=== PATIENT | male | born 1950 | race Caucasian/White ===

== ENCOUNTER 2021-12-03 14:29 | Observation (INO) | payer MEDICARE ==
[2021-12-03] MEDS ORDERED: Aspirin 325 MG TAB ONE (15:34)
[2021-12-03 15:57] LABS: #Basophils 0.1 10x3/uL (0.0-0.2); #Eosinphils 0.4 10x3/uL (0.0-0.5); #Monocytes 0.8 10x3/uL (0.0-1.1); #Neutrophils 3.8 10x3/uL (1.5-8.4); %Eosinophils 5.6 % (0.0-6.0); %Lymphocytes 28.3 % (18.0-47.0); %Monocytes 11.3 % (0.0-10.0); %Neutrophils 53.5 % (40.0-75.0); Hemoglobin 14.1 g/dL (13.5-17.5); Mean Corpuscular HGB CONC 34.1 g/dL (32.0-36.0); Mean Corpuscular Hemoglobin 32.1 pg (27.0-33.0); Mean Corpuscular Volume 94.1 fl (81.2-95.1); Mean Platelet Volume 10.6 fl (7.4-10.4); Platelet Count 244 10x3/uL (150-450); RBC Distribution Width 12.6 % (11.5-14.5); Red Blood Cell (RBC) Count 4.39 10x6/uL (4.32-5.72); White Blood Cell (WBC) Count 7.1 10x3/uL (3.5-10.5)
[2021-12-03 16:11] LABS: ALT (SGPT) 23 U/L (8-55); AST (SGOT) 26 U/L (5-34); Alkaline Phosphatase 73 U/L (40-110); Anion Gap 15 mmol/L (10-20); BUN (Urea Nitrogen) 19 mg/dL (8.4-25.7); Bilirubin, Total 0.5 mg/dL (0.2-1.2); Calc. Creatinine Clearance 0 mL/min (70-130); Calcium 8.9 mg/dL (7.8-10.44); Carbon Dioxide 24 mmol/L (23-31); Chloride 106 mmol/L (98-107); Globulin 2.5 g/dL (2.4-3.5); Glucose 104 mg/dL (83-110); Potassium 3.7 mmol/L (3.5-5.1); Protein, Total 6.5 g/dL (5.8-8.1); Sodium 141 mmol/L (136-145)
[2021-12-03] MEDS ORDERED: Acetaminophen 325 MG TAB PO PRN (17:04)
[2021-12-03] MEDS ORDERED: Ondansetron PF 4 MG/2 ML Vial IVP PRN (17:04)
[2021-12-03] MEDS ORDERED: Ondansetron ODT 4 MG TAB PO PRN (17:04)
[2021-12-03] MEDS ORDERED: HYDROcodone/Acetaminophen 5/325 mg Tablet PO PRN (17:04)
[2021-12-03] MEDS ORDERED: Senokot S 8.6-50 MG TAB PO PRN (17:04)
[2021-12-03] MEDS ORDERED: Nitroglycerin 0.4 MG TAB (25 Tab Bottle) SL PRN (17:06)
[2021-12-03 18:04] LABS: Troponin I Less than 0.010 ng/mL (< 0.028)
[2021-12-03 19:26] VITALS: BMI 28.6
[2021-12-03 20:57] LABS: Troponin I Less than 0.010 ng/mL (< 0.028)
[2021-12-03] MEDS ORDERED: Famotidine 20 MG TAB PO SCH (21:00)
[2021-12-03] MEDS: Ezetimibe 10 MG TAB PO SCH (21:50)
[2021-12-03] MEDS: Aspirin Chewable 81 MG TAB PO SCH (21:50)
[2021-12-03] MEDS: Fish Oil 1,000 MG CAP PO SCH (21:50)
[2021-12-03] MEDS: Atorvastatin Calcium 40 MG TAB PO SCH (21:50)
[2021-12-04] MEDS: Famotidine/PF 20 mg/2ml Vial SLOW IVP SCH ×3 (00:27→22:18)
[2021-12-04 04:54] LABS: #Basophils 0.1 10x3/uL (0.0-0.2); #Eosinphils 0.5 10x3/uL (0.0-0.5); #Monocytes 0.8 10x3/uL (0.0-1.1); %Basophils 1.2 % (0.0-2.0); %Eosinophils 7.7 % (0.0-6.0); %Lymphocytes 33.6 % (18.0-47.0); %Monocytes 11.6 % (0.0-10.0); %Neutrophils 45.6 % (40.0-75.0); Hemoglobin 13.8 g/dL (13.5-17.5); Mean Corpuscular HGB CONC 34.4 g/dL (32.0-36.0); Mean Corpuscular Hemoglobin 31.7 pg (27.0-33.0); Mean Corpuscular Volume 92.2 fl (81.2-95.1); Mean Platelet Volume 9.9 fl (7.4-10.4); Platelet Count 229 10x3/uL (150-450); RBC Distribution Width 12.6 % (11.5-14.5); Red Blood Cell (RBC) Count 4.35 10x6/uL (4.32-5.72); White Blood Cell (WBC) Count 6.7 10x3/uL (3.5-10.5)
[2021-12-04 05:08] LABS: Anion Gap 12 mmol/L (10-20); BUN (Urea Nitrogen) 17 mg/dL (8.4-25.7); Calc. Creatinine Clearance 74 mL/min (70-130); Calcium 8.6 mg/dL (7.8-10.44); Carbon Dioxide 25 mmol/L (23-31); Cardiac Risk 3.8 (Less than 4.5); Chloride 108 mmol/L (98-107); Cholesterol 83 mg/dl (< 200 Desired); Glucose 115 mg/dL (83-110); HDL Cholesterol 22 mg/dL (>60 Neg Risk); LDL Cholesterol, Calculated 42 mg/dL; Potassium 3.4 mmol/L (3.5-5.1); Sodium 142 mmol/L (136-145); Triglycerides 97 mg/dL (Less than 150)
[2021-12-04 08:58] LABS: SARS-CoV-2 NAA Rapid Test Not Detected (NotDetected)
[2021-12-04] MEDS ORDERED: Losartan Potassium 50 MG TAB PO SCH (09:00)
[2021-12-04] MEDS ORDERED: Aspirin Chewable 81 MG TAB PO SCH (09:00)
[2021-12-04] MEDS ORDERED: Clopidogrel Bisulfate 75 MG TAB PO SCH (09:00)
[2021-12-04] MEDS ORDERED: Enoxaparin Sodium 40 MG/0.4 ML SYRINGE SC SCH ×2 (09:00)
[2021-12-04] MEDS: Fish Oil 1,000 MG CAP PO SCH ×2 (10:03→22:18)
[2021-12-04] MEDS ORDERED: Potassium Chloride 20 MEQ TAB PO SCH (11:00)
[2021-12-04] MEDS: Aspirin Chewable 81 MG TAB PO SCH (22:17)
[2021-12-04] MEDS: Ezetimibe 10 MG TAB PO SCH (22:17)
[2021-12-04] MEDS: Atorvastatin Calcium 40 MG TAB PO SCH (22:18)
[2021-12-05 11:04] VITALS: BP 133/100; TEMP 97.2
== END 2021-12-05 11:06 | disposition home or self-care (01) ==
LOC: CSHERS 14:29 → CSHTELE 17:58
PROVIDERS: ADMIT Hospitalist; ATTEND Family Medicine
DX: R07.9 Chest pain, unspecified (principal); K21.9 Gastro-esophageal reflux disease without esophagitis; E78.5 Hyperlipidemia, unspecified; I10 Essential (primary) hypertension; E66.9 Obesity, unspecified; I25.810 Atherosclerosis of coronary artery bypass graft(s) without angina pectoris; F17.200 Nicotine dependence, unspecified, uncomplicated; Z86.718 Personal history of other venous thrombosis and embolism; Z79.01 Long term (current) use of anticoagulants
CPT/HCPCS: 71045; 80048; 80053; 80061; 83880; 84443; 84484 ×2; 85025 ×2; 93005 ×2; 96372; 96374; 96376; 99285; G0378 ×4; U0002; 36415; 93010; J1650; S0028

== ENCOUNTER 2022-06-21 15:14 | Observation (INO) | payer MEDICARE ==
[~2022-06-21 15:14] MED LIST: Iopamidol 300 61% 100 ML VIAL FS ONE
[2022-06-21 15:46] LABS: #Basophils 0.1 10x3/uL (0.0-0.2); #Eosinphils 0.2 10x3/uL (0.0-0.5); #Monocytes 0.9 10x3/uL (0.0-1.1); #Neutrophils 6.4 10x3/uL (1.5-8.4); %Basophils 0.7 % (0.0-2.0); %Eosinophils 2.2 % (0.0-6.0); %Lymphocytes 17.4 % (18.0-47.0); %Monocytes 9.9 % (0.0-10.0); %Neutrophils 69.5 % (40.0-75.0); Hemoglobin 15.1 g/dL (13.5-17.5); Mean Corpuscular HGB CONC 33.9 g/dL (32.0-36.0); Mean Corpuscular Hemoglobin 32.1 pg (27.0-33.0); Mean Corpuscular Volume 94.5 fl (81.2-95.1); Mean Platelet Volume 9.8 fl (7.4-10.4); Platelet Count 265 10x3/uL (150-450); Red Blood Cell (RBC) Count 4.71 10x6/uL (4.32-5.72); White Blood Cell (WBC) Count 9.2 10x3/uL (3.5-10.5)
[2022-06-21 16:38] LABS: ALT (SGPT) 105 U/L (8-55); AST (SGOT) 157 U/L (5-34); Albumin 4.5 g/dL (3.4-4.8); Alkaline Phosphatase 110 U/L (40-110); Anion Gap 16 mmol/L (10-20); BUN (Urea Nitrogen) 16 mg/dL (8.4-25.7); Bilirubin, Total 0.6 mg/dL (0.2-1.2); Calc. Creatinine Clearance 0 mL/min (70-130); Calcium 9.3 mg/dL (7.8-10.44); Carbon Dioxide 22 mmol/L (23-31); Chloride 103 mmol/L (98-107); Estimated GFR 79; Globulin 2.6 g/dL (2.4-3.5); Glucose 114 mg/dL (83-110); Lipase 44 U/L (8-78); Protein, Total 7.1 g/dL (5.8-8.1); Sodium 137 mmol/L (136-145)
[2022-06-21] MEDS ORDERED: Aspirin Chewable 81 MG TAB ONE (17:35)
[2022-06-21] MEDS ORDERED: Dicyclomine 20 MG TAB ONE (17:36)
[2022-06-21] MEDS ORDERED: Guaifenesin DM 100-10/5 ML UDCUP PO PRN (19:18)
[2022-06-21] MEDS ORDERED: Acetaminophen 325 MG TAB PO PRN (19:18)
[2022-06-21] MEDS ORDERED: Calcium Carbonate 500 MG ChewTAB PO PRN (19:18)
[2022-06-21] MEDS ORDERED: Senokot S 8.6-50 MG TAB PO PRN (19:18)
[2022-06-21] MEDS ORDERED: Ondansetron PF 4 MG/2 ML Vial IVP PRN (19:18)
[2022-06-21] MEDS ORDERED: Zolpidem Tartrate 5 MG TAB PO PRN (19:18)
[2022-06-21] MEDS ORDERED: Lidocaine 2% Viscous Solution 10 ML, Aluminum & Magnesium Hydroxide 30 ML SSW SCH (20:30)
[2022-06-21 20:59] VITALS: BMI 29.5
[2022-06-21] MEDS ORDERED: Aspirin Chewable 81 MG TAB PO SCH (21:00)
[2022-06-21] MEDS ORDERED: Hydrochlorothiazide 25 MG TAB PO SCH (21:00)
[2022-06-21 23:35] LABS: SARS-CoV-2 NAA Rapid Test Not Detected (NotDetected)
[2022-06-21 23:45] LABS: Bilirubin Neg (Negative); Blood, Urine 25 (Negative); CAUTI Indications for Culture Pelvic or flank pain; Clarity Clear (Clear); Glucose, Urine (Dipstick) Normal (Negative); Ketone, Urine Negative (Negative); Leukocyte Negative (Negative); Nitrite Negative (Negative); Protein, Urine (Dipstick) Negative (Neg-Trace); Specific Gravity, Urine 1.005 (1.005-1.030); Urobilinogen Normal mg/dL (Less than 2); pH, Urine 6.5 (5.0-9.0)
[2022-06-21 23:57] LABS: Bacteria/HPF None Seen HPF (None Seen); RBC/HPF 0-3 HPF (0-3); Squamous Epithelial 0-3 HPF (0-3); WBC/HPF None Seen HPF (0-3)
[2022-06-21 23:58] LABS: Urine Culture Reflex No No
[2022-06-22 04:52] LABS: #Basophils 0.1 10x3/uL (0.0-0.2); #Eosinphils 0.5 10x3/uL (0.0-0.5); #Monocytes 0.8 10x3/uL (0.0-1.1); #Neutrophils 4.2 10x3/uL (1.5-8.4); %Basophils 0.7 % (0.0-2.0); %Eosinophils 7.2 % (0.0-6.0); %Lymphocytes 23.8 % (18.0-47.0); %Monocytes 10.9 % (0.0-10.0); %Neutrophils 57.1 % (40.0-75.0); Hemoglobin 14.2 g/dL (13.5-17.5); Mean Corpuscular HGB CONC 34.8 g/dL (32.0-36.0); Mean Corpuscular Hemoglobin 32.6 pg (27.0-33.0); Mean Corpuscular Volume 93.6 fl (81.2-95.1); Mean Platelet Volume 9.9 fl (7.4-10.4); Platelet Count 238 10x3/uL (150-450); RBC Distribution Width 12.9 % (11.5-14.5); Red Blood Cell (RBC) Count 4.36 10x6/uL (4.32-5.72); White Blood Cell (WBC) Count 7.3 10x3/uL (3.5-10.5)
[2022-06-22 05:07] LABS: ALT (SGPT) 271 U/L (8-55); AST (SGOT) 243 U/L (5-34); Albumin 3.9 g/dL (3.4-4.8); Alkaline Phosphatase 129 U/L (40-110); Anion Gap 13 mmol/L (10-20); BUN (Urea Nitrogen) 18 mg/dL (8.4-25.7); Bilirubin, Total 0.5 mg/dL (0.2-1.2); Calc. Creatinine Clearance 87 mL/min (70-130); Calcium 8.7 mg/dL (7.8-10.44); Carbon Dioxide 24 mmol/L (23-31); Cardiac Risk 3.4 (Less than 4.5); Chloride 105 mmol/L (98-107); Cholesterol 99 mg/dl (< 200 Desired); Estimated GFR 82; Globulin 2.5 g/dL (2.4-3.5); Glucose 117 mg/dL (83-110); HDL Cholesterol 29 mg/dL (>60 Neg Risk); LDL Cholesterol, Calculated 50 mg/dL; Lipase 46 U/L (8-78); Potassium 3.7 mmol/L (3.5-5.1); Protein, Total 6.4 g/dL (5.8-8.1); Sodium 138 mmol/L (136-145); Triglycerides 101 mg/dL (Less than 150)
[2022-06-22 07:33] VITALS: TEMP 97.9
[2022-06-22] MEDS ORDERED: Losartan Potassium 50 MG TAB PO SCH (09:00)
[2022-06-22 11:36] VITALS: BP 144/66
[2022-06-22 12:55] LABS: Gamma GT (GGT) 310 U/L (12-64)
== END 2022-06-22 11:20 | disposition home or self-care (01) ==
LOC: CSHERS 15:14 → CSHTELE 19:59
PROVIDERS: ADMIT Student in an Organized Health Care Education/Training Program; ATTEND Nurse Practitioner Acute Care
DX: R10.13 Epigastric pain (principal); I25.810 Atherosclerosis of coronary artery bypass graft(s) without angina pectoris; I44.7 Left bundle-branch block, unspecified; E66.9 Obesity, unspecified; E78.5 Hyperlipidemia, unspecified; K21.9 Gastro-esophageal reflux disease without esophagitis; R74.01 Elevation of levels of liver transaminase levels; R07.9 Chest pain, unspecified; I12.9 Hypertensive chronic kidney disease with stage 1 through stage 4 chronic kidney disease, or unspecified chronic kidney disease; N18.2 Chronic kidney disease, stage 2 (mild); Z20.822 Contact with and (suspected) exposure to COVID-19; Z79.82 Long term (current) use of aspirin; Z79.899 Other long term (current) drug therapy; Z88.8 Allergy status to other drugs, medicaments and biological substances; Z87.891 Personal history of nicotine dependence
CPT/HCPCS: 71045; 74177; 80053 ×2; 80061; 81001; 82550; 82977; 83605; 83690 ×2; 84484 ×3; 85025 ×2; 93005 ×2; 96372; 99285; G0378 ×3; U0002; 36415; 93010; J1650; Q9967

== ENCOUNTER 2024-06-30 08:43 | Emergency (ER) | payer MEDICARE ==
[2024-06-30] MEDS ORDERED: Ondansetron PF 4 MG/2 ML Vial ONE (09:19)
[2024-06-30 09:31] LABS: #Basophils 0.05 10x3/uL (0.0-0.2); #Eosinophils 0.05 10x3/uL (0.0-0.5); #Monocytes 0.89 10x3/uL (0.0-1.1); #Neutrophils 3.51 10x3/uL (1.5-8.4); %Basophils 0.7 % (0.0-2.0); %Eosinophils 0.7 % (0.0-6.0); %Lymphocytes 32.8 % (18.0-47.0); %Monocytes 13.2 % (0.0-10.0); %Neutrophils 52.3 % (40.0-75.0); Hematocrit 44.2 % (38.8-50.0); Hemoglobin 15.7 g/dL (13.5-17.5); Mean Corpuscular HGB CONC 35.5 g/dL (32.0-36.0); Mean Corpuscular Hemoglobin 32.6 pg (27.0-33.0); Mean Corpuscular Volume 91.9 fL (81.2-95.1); Mean Platelet Volume 9.3 fL (7.4-10.4); Platelet Count 306 10x3/uL (150-450); RBC Distribution Width 12.1 % (11.5-14.5); Red Blood Cell (RBC) Count 4.81 10x6/uL (4.32-5.72); White Blood Cell (WBC) Count 6.73 10x3/uL (3.5-10.5)
[2024-06-30 09:44] LABS: ALT (SGPT) 17 U/L (8-55); AST (SGOT) 18 U/L (5-34); Albumin 3.9 g/dL (3.4-4.8); Alkaline Phosphatase 78 U/L (40-110); Anion Gap 13 mmol/L (10-20); BUN (Urea Nitrogen) 16 mg/dL (8.4-25.7); Bilirubin, Total 0.6 mg/dL (0.2-1.2); Calc. Creatinine Clearance 0 mL/min (70-130); Calcium 9.8 mg/dL (7.8-10.44); Carbon Dioxide 26 mmol/L (23-31); Chloride 104 mmol/L (98-107); Estimated GFR 78; Globulin 2.8 g/dL (2.4-3.5); Glucose 94 mg/dL (83-110); Potassium 3.2 mmol/L (3.5-5.1); Protein, Total 6.7 g/dL (5.8-8.1); Sodium 140 mmol/L (136-145)
[2024-06-30] MEDS ORDERED: Iopamidol 300 61% 100 ML VIAL FS ONE (11:09)
[2024-06-30 12:27] LABS: Bilirubin Neg (Negative); Blood, Urine 10 (Negative); Clarity Clear (Clear); Glucose, Urine (Dipstick) Normal (Negative); Ketone, Urine Negative (Negative); Leukocyte Negative (Negative); Nitrite Negative (Negative); Protein, Urine (Dipstick) 15 mg/dl (Neg-Trace); Urobilinogen Normal mg/dL (Less than 2)
[2024-06-30 12:38] LABS: Bacteria/HPF None Seen HPF (None Seen); CAUTI Indications for Culture Pelvic or flank pain; Squamous Epithelial 0-3 HPF (0-3); WBC/HPF None Seen HPF (0-3)
[2024-06-30 12:39] LABS: Urine Culture Reflex No No
== END 2024-06-30 12:56 | disposition home or self-care (01) ==
LOC: CSHERS 08:43
DX: R19.7 Diarrhea, unspecified (principal); R11.2 Nausea with vomiting, unspecified; R10.30 Lower abdominal pain, unspecified; I10 Essential (primary) hypertension; E78.5 Hyperlipidemia, unspecified; I25.10 Atherosclerotic heart disease of native coronary artery without angina pectoris; F17.220 Nicotine dependence, chewing tobacco, uncomplicated; Z55.0 Illiteracy and low-level literacy
CPT/HCPCS: 74177; 80053; 81001; 83690; 85025; J2405; Q9967; 96361; 96374

== ENCOUNTER 2025-06-16 00:32 | Observation (INO) | payer MEDICARE ==
[2025-06-16 01:00] LABS: #Basophils 0.04 10x3/uL (0.0-0.2); #Eosinophils 0.09 10x3/uL (0.0-0.5); #Monocytes 0.90 10x3/uL (0.0-1.1); #Neutrophils 5.09 10x3/uL (1.5-8.4); %Basophils 0.5 % (0.0-2.0); %Eosinophils 1.0 % (0.0-6.0); %Lymphocytes 28.8 % (18.0-47.0); %Monocytes 10.4 % (0.0-10.0); %Neutrophils 58.8 % (40.0-75.0); Hematocrit 41.4 % (38.8-50.0); Hemoglobin 14.3 g/dL (13.5-17.5); Mean Corpuscular Hemoglobin 32.4 pg (27.0-33.0); Mean Corpuscular Volume 93.7 fL (81.2-95.1); Platelet Count 302 10x3/uL (150-450); Red Blood Cell (RBC) Count 4.42 10x6/uL (4.32-5.72); White Blood Cell (WBC) Count 8.65 10x3/uL (3.5-10.5)
[2025-06-16 01:14] LABS: INR-International Normal Ratio 1.0; PTT 26.4 sec (22.0-33.0); Prothrombin Time 10.9 sec (9.5-12.1)
[2025-06-16 01:17] LABS: ALT (SGPT) 24 U/L (Less than 45); AST (SGOT) 24 U/L (11-34); Albumin 3.9 g/dL (3.1-4.5); Alkaline Phosphatase 67 U/L (40-110); Anion Gap 12 mmol/L (10-20); BUN (Urea Nitrogen) 21 mg/dL (8.4-25.7); Bilirubin, Total 0.4 mg/dL (0.3-1.2); Calc. Creatinine Clearance 0 mL/min (70-130); Calcium 9.1 mg/dL (7.8-10.44); Carbon Dioxide 25 mmol/L (23-31); Chloride 109 mmol/L (98-107); Globulin 2.8 g/dL (2.4-3.5); Glucose 172 mg/dL (83-110); Lipase 36 U/L (8-78); Potassium 3.6 mmol/L (3.5-5.1); Sodium 142 mmol/L (136-145)
[2025-06-16 01:19] LABS: Troponin I Less than 0.010 ng/mL (< 0.028)
[2025-06-16] MEDS ORDERED: Melatonin 3 MG TAB PO PRN (03:15)
[2025-06-16] MEDS ORDERED: Calcium Carbonate 500 MG ChewTAB PO PRN (03:15)
[2025-06-16] MEDS ORDERED: Electrolyte Replacement Protocol 1 EACH FS SCH (03:15)
[2025-06-16] MEDS ORDERED: Guaifenesin DM 100-10/5 ML UDCUP PO PRN (03:15)
[2025-06-16] MEDS ORDERED: Ondansetron PF 4 MG/2 ML Vial IVP PRN (03:15)
[2025-06-16] MEDS ORDERED: Acetaminophen 325 MG TAB PO PRN (03:15)
[2025-06-16] MEDS ORDERED: Bisacodyl 10 MG SUPP PR PRN (03:15)
[2025-06-16] MEDS ORDERED: Senokot S 8.6-50 MG TAB PO PRN (03:15)
[2025-06-16] MEDS ORDERED: PHOS-NAK 1 PKT PACK PO PRN (03:45)
[2025-06-16] MEDS ORDERED: Potassium Chloride 20 MEQ in Premix 1 BAG IVPB PRN (03:45)
[2025-06-16] MEDS ORDERED: Magnesium Sulfate In Water 4 GM in Premix 1 BAG IVPB PRN (03:45)
[2025-06-16 05:16] LABS: #Basophils 0.04 10x3/uL (0.0-0.2); #Eosinophils 0.11 10x3/uL (0.0-0.5); #Monocytes 0.95 10x3/uL (0.0-1.1); #Neutrophils 3.96 10x3/uL (1.5-8.4); %Basophils 0.5 % (0.0-2.0); %Eosinophils 1.5 % (0.0-6.0); %Lymphocytes 30.7 % (18.0-47.0); %Monocytes 12.9 % (0.0-10.0); %Neutrophils 54.0 % (40.0-75.0); Hematocrit 39.0 % (38.8-50.0); Hemoglobin 13.3 g/dL (13.5-17.5); Mean Corpuscular Hemoglobin 31.9 pg (27.0-33.0); Mean Corpuscular Volume 93.5 fL (81.2-95.1); Platelet Count 282 10x3/uL (150-450); Red Blood Cell (RBC) Count 4.17 10x6/uL (4.32-5.72); White Blood Cell (WBC) Count 7.35 10x3/uL (3.5-10.5)
[2025-06-16 05:27] LABS: ALT (SGPT) 22 U/L (Less than 45); AST (SGOT) 23 U/L (11-34); Albumin 3.6 g/dL (3.1-4.5); Alkaline Phosphatase 60 U/L (40-110); Anion Gap 10 mmol/L (10-20); BUN (Urea Nitrogen) 20 mg/dL (8.4-25.7); Bilirubin, Total 0.3 mg/dL (0.3-1.2); Calc. Creatinine Clearance 0 mL/min (70-130); Calcium 8.7 mg/dL (7.8-10.44); Carbon Dioxide 26 mmol/L (23-31); Chloride 109 mmol/L (98-107); Globulin 2.6 g/dL (2.4-3.5); Glucose 173 mg/dL (83-110); Potassium 3.9 mmol/L (3.5-5.1); Sodium 141 mmol/L (136-145)
[2025-06-16] MEDS ORDERED: hydrALAZINE 20 MG/ML VIAL SLOW IVP PRN (05:34)
[2025-06-16] MEDS ORDERED: Aspirin 325 MG TAB ONE (06:26)
[2025-06-16 09:17] LABS: Cardiac Risk 4.7 (Less than 4.5); Cholesterol 135.0 mg/dl (< 200 Desired); HDL Cholesterol 29.0 mg/dL (>60 Neg Risk); LDL Cholesterol, Calculated 88.0 mg/dL; Triglycerides 92.0 mg/dL (Less than 150)
[2025-06-16 09:18] LABS: Troponin I Less than 0.010 ng/mL (< 0.028)
[2025-06-16] MEDS ORDERED: Enoxaparin 40 MG (0.4 mL) SYRINGE ONE (09:24)
[2025-06-16] MEDS ORDERED: Aspirin 81 mg Enteric Coated Tablet ONE (09:24)
[2025-06-16] MEDS: Aspirin 81 mg Enteric Coated Tablet PO SCH (09:35)
[2025-06-16] MEDS: Enoxaparin 40 MG (0.4 mL) SYRINGE SC SCH (09:35)
[2025-06-16 12:15] VITALS: TEMP 97.1
[2025-06-16 14:30] VITALS: BP 122/63
== END 2025-06-16 14:37 | disposition home or self-care (01) ==
LOC: CSHERS 00:32 → CSHERHOLD 03:15
PROVIDERS: ADMIT Internal Medicine; ATTEND Family Medicine
DX: R20.0 Anesthesia of skin (principal); I16.0 Hypertensive urgency; I10 Essential (primary) hypertension; I25.10 Atherosclerotic heart disease of native coronary artery without angina pectoris; E78.5 Hyperlipidemia, unspecified; F17.220 Nicotine dependence, chewing tobacco, uncomplicated; K21.9 Gastro-esophageal reflux disease without esophagitis; N40.0 Benign prostatic hyperplasia without lower urinary tract symptoms; Z95.1 Presence of aortocoronary bypass graft; Z90.49 Acquired absence of other specified parts of digestive tract; Z88.5 Allergy status to narcotic agent; Z79.82 Long term (current) use of aspirin; Z79.02 Long term (current) use of antithrombotics/antiplatelets; Z79.899 Other long term (current) drug therapy
CPT/HCPCS: 70450; 70496; 70498; 70551; 71045; 80061; 82962; 83036; 83690; 84484 ×2; 85610; 85730; 93005; 99285; J1650; 36415; 36416; 80053; 84443; 85025